=== PATIENT | female | born 1960 | race Caucasian/White ===

== ENCOUNTER 2020-06-13 08:41 | Emergency (ER) | payer BC ==
--- NOTE | 2020-06-13 09:11 | EDM.PDOC ---
ED HPI GENERAL MEDICAL PROBLEM - General Chief Complaint: Upper Extremity Injury/Pain Stated Complaint: SENT OVER FROM [facility] Time Seen by Provider: 06/13/20 09:06 Source of Information: Reports: Patient History Limitations: Reports: No Limitations - History of Present Illness INITIAL COMMENTS - FREE TEXT/NARRATIVE: Patient presents for left shoulder and chest pain that is radiating to her left arm. She worked out on Monday and did a lot of upper body lifting that she is not used to. morning she woke up with pain in her shoulder, upper back and chest. It has been keeping her up at night so she decided to go to the clinic for evaluation. The clinic was concerned, given her history, and diverted her to the ER. She feels the pain mostly with movement and it is mostly in her left posterior shoulder/upper back. Onset Date: 06/11/20 Onset Time: 05:00 Location: Reports: Chest, Back, Upper Extremity, Left Quality: Reports: Ache, Throbbing Severity: Moderate Improves with: Reports: Medication, Rest Worsens with: Reports: Breathing, Movement Context: Reports: Activity, Exercise, Lifting Associated Symptoms: Reports: Chest Pain. Denies: Diaphoresis, Nausea/Vomiting, Shortness of Breath, Syncope Treatments [employer] CHIEF: Reports: Acetaminophen Left Shoulder Pain Score (Numeric/FACES): 8 - Related Data Allergies Allergy/AdvReac Type Severity Reaction Status Date / Time No Known Allergies Allergy Verified 06/13/20 08:57 Past Medical History Other Cardiovascular History: Has had EKG, echo and heart MRI - pt reported all normal Review of Systems - Review of Systems Review Of Systems: Comprehensive ROS is negative, except as noted in HPI. ED EXAM, GENERAL - Physical Exam Exam: See Below Exam Limited By: No Limitations General Appearance: Alert, WD/WN, No Apparent Distress Eye Exam: Bilateral Eye: Normal Inspection Ears: Normal External Exam Nose: Normal Inspection Throat/Mouth: Normal Inspection Head: Atraumatic, Normocephalic Neck: Normal Inspection, Supple Respiratory/Chest: No Respiratory Distress, Lungs Clear, Normal Breath Sounds, No Accessory Muscle Use, Chest Non-Tender Cardiovascular: Normal Peripheral Pulses, Regular Rate, Rhythm, No Murmur Back Exam: Normal Inspection, Muscle Spasm (left upper back/scapular region) Extremities: Normal Inspection Neurological: Alert, Oriented, Normal Cognition, No Motor/Sensory Deficits Psychiatric: Normal Affect, Normal Mood Skin Exam: Warm, Dry, Intact, Normal Color, No Rash Lymphatic: No Adenopathy EKG INTERPRETATION EKG Date: 06/13/20 Rhythm: NSR [place]: Normal P-Wave: Present QRS: RBBB ST-T: Normal QT: Normal Comparison: Other: (no prior EKG at this facility) Course - Vital Signs Last Recorded V/S: Last Vital Signs Temp 97.0 F 06/13/20 08:58 Pulse 70 06/13/20 08:58 Resp 18 06/13/20 08:58 BP 151/79 H 06/13/20 08:58 Pulse Ox 98 06/13/20 08:58 - Orders/Labs/Meds Orders: Active Orders 24 hr Category Date Time Status EKG 12 Lead [EKG Documentation Completion] [RC] STAT Care 06/13/20 09:04 Active Labs: Laboratory Tests 06/13/20 06/13/20 Range/Units 09:13 09:13 WBC 9.0 (5.0-10.0) 10^3/uL RBC 4.95 (4.2-5.4) 10^6/uL Hgb 13.6 (12.0-16.0) g/dL Hct 41.4 (37.0-47.0) % MCV 83.6 (80-100) fL MCH 27.5 (27.0-34.0) pg MCHC 32.9 L (33.0-35.0) g/dL Plt Count 287 (150-450) 10^3/uL Neut % (Auto) 68.0 (42.2-75.2) % Lymph % (Auto) 20.1 L (20.5-50.1) % [place] % (Auto) 8.3 H (2-8) % Eos % (Auto) 3.3 H (1.0-3.0) % Baso % (Auto) 0.3 (0.0-1.0) % Sodium 141 (136-145) mmol/L Potassium 4.5 (3.5-5.1) mmol/L Chloride 104 (98-107) mmol/L Carbon Dioxide 28 (21-32) mmol/L Anion Gap 13.5 H (7-13) mEq/L BUN 13 (7-18) mg/dL Creatinine 1.11 H (0.55-1.02) mg/dL Est Cr Clr Drug Dosing 47.89 mL/min Estimated GFR (MDRD) 50 BUN/Creatinine Ratio 11.7 (No establ ref range) Glucose 94 (74-99) mg/dL Calcium 9.3 (8.5-10.1) mg/dL Total Bilirubin 0.4 (0.2-1.0) mg/dL AST 20 (15-37) U/L ALT 28 (14-59) U/L Alkaline Phosphatase 83 (46-116) U/L Troponin I < 0.017 (0.000-0.056) ng/mL Total Protein 7.8 (6.4-8.2) g/dL Albumin 3.6 (3.4-5.0) g/dL Globulin 4.2 Albumin/Globulin Ratio 0.9 Departure - Departure Time of Disposition: 10:02 Disposition: Home, Self-Care 01 Condition: Good Clinical Impression: Muscle spasm - Discharge Information *PRESCRIPTION DRUG MONITORING PROGRAM REVIEWED*: Not Applicable *COPY OF PRESCRIPTION DRUG MONITORING REPORT IN PATIENT VICENTE: Not Applicable Instructions: Muscle Cramps and Spasms, [id number] Forms: ED Department Discharge Sepsis Event Note (ED) - Evaluation Sepsis Screening Result: No Definite Risk - Focused Exam Vital Signs: Vital Signs Temp Pulse Resp BP Pulse Ox 06/13/20 08:58 97.0 F 70 18 151/79 H 98 - Problem List & Annotations (1) Muscle spasm of back SNOMED Code(s): 132845233 Code(s): M62.830 - MUSCLE SPASM OF BACK Status: Acute - Problem List Review Problem List Initiated/Reviewed/Updated: Yes - My Orders Last 24 Hours: My Active Orders 06/13/20 09:04 EKG 12 Lead [EKG Documentation Completion] [RC] STAT - Assessment/Plan Last 24 Hours: My Active Orders 06/13/20 09:04 EKG 12 Lead [EKG Documentation Completion] [RC] STAT Assessment:: 59 yo female with acute left shoulder/upper back pain with radiation to her left arm and chest after working out Plan: Reviewed test results with the patient Flexeril QHS/PRN for spasms Call if symptoms worsen F/U with PCP in 1-2 weeks.
[2020-06-13 09:44] LABS: ANION GAP 13.5 mEq/L (7-13); CHLORIDE,CL 104 mmol/L (98-107); SODIUM,NA 141 mmol/L (136-145)
== END 2020-06-13 10:10 | disposition home or self-care (01) ==
LOC: DL.ED 08:41
DX: M62.830 Muscle spasm of back (principal); R07.9 Chest pain, unspecified
CPT/HCPCS: 36415; 80053; 84484; 85025; 93005; 99285-25